=== PATIENT | female | born 1990 | race Caucasian/White ===

== ENCOUNTER 2018-09-26 07:40 | Inpatient (IN) ==
[2018-09-26] MEDS ORDERED: OXYTOCIN 30 UNITS/500 ML BAG IV PRN ×3 (08:15→19:46)
[2018-09-26] MEDS ORDERED: LACTATED RINGER'S 1,000 ML IV PRN ×3 (08:15→14:25)
[2018-09-26 08:42] LABS: Hematocrit (blood only) 42.5 % (37-47); Mean Corpuscular Volume 83.8 fL (80-100); Mean Platelet Volume 13.1 fL (7.4-10.4); Platelet Count 186 K/uL (130-400); RDW Coefficient of Variation 14.1 % (11.5-14.5); RDW Standard Deviation 42.9 fL (36.4-46.3); Red Blood Count 5.07 M/uL (4.2-5.4); White Blood Count 6.36 K/uL (4.8-10.8)
--- NOTE | 2018-09-26 08:51 | History & Physical Report ---
Date of Service September 26, 2018 Assessment & Plan (1) Elective induction of labor planned: Pt is a 28yo for IOL at 39.6 weeks. GBS - -Pitocin, fluids, tylenol for pain, NPO -anticipate History of Present Illness Chief Complaint: IOL Primary Care Provider: NO PCP Ms. Deal is a 28yo here for IOL at 39.6 weeks. Has MARNI of September 27 confirmed by LMP. complicated by transfer to practice at 26weeks and Hx of oligohydramnios with IOL at 37 weeks with prior baby. Has been getting monthly growth ultrasounds from 28 weeks and regular NSTs and MVPs from 32 weeks. O+, Antibody negative. Rubella immune. Hep B NEG, HIV NEG POSITIVE integrated 1st and 2nd trimester screening for Down's. NEGATIVE/NORMAL cell free DNA. Declined Amniocentesis. NEGATIVE 1 hr glucose x1 GBS - Allergies Allergy/AdvReac Type Severity Reaction Status Date / Time No Known Allergies Allergy Unverified 09/26/18 07:57 Home Medications Home Medications Medication Instructions Recorded Confirmed Type PNV cmb#95-ferrous fumarate-FA 1 tab PO DAILY 09/26/18 09/26/18 History [] Patient History Medical History No known health problems Surgical History No history of previous surgery Family History Father Hypertension Social History Preferred Language: Kittitian Communication Ability: Effective Manager Commodities Required: No Beliefs That Will Affect Care: None marital status: Current Living Situation: Spouse Feels Safe at Home: Yes Safety Concerns: Feels Safe At This Time Smoking Status: Never smoker Do You Dip or Chew Tobacco: No Second Hand Exposure: No Hx Alcohol Use: No Hx Substance Use: No Review of Systems no problem reported no dyspnea no chest pain and no palpitations no nausea and no vomiting no headache(s) Physical Exam Respiratory: normal respiratory effort, lungs clear to auscultation Cardiovascular: Rate/Rhythm: regular rate and regular rhythm Genitourinary: OB Exam Abdomen: + vertex and + estimated weight (6-7 pounds) Manual OB Exam: + cervical dilation 2 cm (possibly 3cm), + cervical effacement 60% and + station -1 Results & Data Vital Signs (Past 12 Hours) Vital Signs Temp Pulse Resp BP 09/26/18 08:12 36.7 C 18 09/26/18 07:52 86 125/80 Laboratory Results Laboratory Results - last 24 hr 09/26/18 08:29 WBC 6.36 RBC 5.07 Hgb 15.0 Hct 42.5 MCV 83.8 MCH 29.6 MCHC 35.3 RDW Std Deviation 42.9 RDW Coeff of Regino 14.1 Plt Count 186 MPV 13.1 H Medications Administered Home Medications PNV cmb#95-ferrous fumarate-FA [] 1 tab PO DAILY 09/26/18 [History Confirmed 09/26/18] Active Medications Acetaminophen (Tylenol) 650 mg PO Q4H PRN PRN Reason: Headache or Pain Stop: 10/26/18 09:20 Last Admin: 09/26/18 09:30 Dose: 650 mg Documented by: Lactated Ringer's (Lr) 1,000 mls @ 999 mls/hr IV .Q1H1M PRN PRN Reason: (Pre-Anesthesia) Stop: 10/26/18 08:14 Oxytocin (Pitocin) 30 units in 500 mls @ 333.333 mls/hr IV .Q1H30M PRN; Protocol PRN Reason: Bleeding Control Stop: 10/26/18 08:14 Lactated Ringer's (Lr) 1,000 mls @ 125 mls/hr IV .Q8H RAHUL Stop: 09/28/18 08:14 Oxytocin (Pitocin) 30 units in 500 mls @ 2 mls/hr IV .Q24H PRN; Protocol PRN Reason: Labor Induction/Augmentation Stop: 09/28/18 08:17 Lactated Ringer's (Lr) 1,000 mls @ 999 mls/hr IV .Q1H1M PRN PRN Reason: Tachysystole Stop: 09/28/18 08:17 Supervising Physician Co-Signing Physician Notes Resident Physician Supervision Note: I interviewed and examined the patient. Discussed with Dr. Ashley Moulton MD and agree with findings and plan as documented in the note. Any exceptions or clarifications are listed here: [None] Documented By: Blank Rich MD, FACOG
[2018-09-26] MEDS: LACTATED RINGER'S 1,000 ML IV SCH ×3 (09:15→18:59)
[2018-09-26] MEDS ORDERED: ACETAMINOPHEN 325 MG TAB PO PRN ×2 (09:21→19:46)
[2018-09-26 09:29] LABS: Mean Corpuscular Hgb Conc 35.3 g/dL (32-36)
[2018-09-26] MEDS ORDERED: BUPIVACAINE 0.25% 30 ML VIAL ONE (13:18)
[2018-09-26] MEDS ORDERED: ePHEDrine sulfate 50 MG/ML AMP ONE (13:18)
[2018-09-26] MEDS ORDERED: fentaNYL citrate 100 MCG/2 ML VIAL ONE (13:19)
[2018-09-26] MEDS ORDERED: fentaNYL 2MCG/ML ROPIV 1.25MG/ML 100 ML BAG EPI ONE (13:19)
[2018-09-26] MEDS ORDERED: DiphenhydrAMINE HCL 50 MG/ML VIAL IV PRN (14:25)
[2018-09-26] MEDS ORDERED: PROMETHAZINE HCL 6.25 MG in SODIUM CHLORIDE 0.9% 50 ML IV PRN (14:25)
[2018-09-26] MEDS ORDERED: ONDANSETRON INJ 2 MG/ML 2 ML VIAL IV PRN (14:25)
[2018-09-26] MEDS ORDERED: NALOXONE HCL 0.4 MG/1 ML VIAL/CARP IV PRN (14:25)
[2018-09-26] MEDS ORDERED: ePHEDrine sulfate 50 MG/ML AMP IV PRN (14:25)
[2018-09-26] MEDS ORDERED: NALBUPHINE HCL INJ 10 MG/ML AMP IV PRN (14:25)
[2018-09-26] MEDS ORDERED: NALOXONE HCL 1 MG in SODIUM CHLORIDE 0.9% 1000ML 1,000 ML IV PRN (14:25)
[2018-09-26] MEDS ORDERED: fentaNYL 2MCG/ML ROPIV 1.25MG/ML 100 ML BAG EPI PRN (14:25)
--- NOTE | 2018-09-26 14:25 | Anesthesiology Consultation ---
Date of Service September 26, 2018 Assessment & Plan (1) Encounter for pre-operative examination: Chart Review Chart Review: Patient NOT seen in Pre Admission Testing and Acceptable Risk for Labor Epidural Consults Requested none ASA ASA2 Proposed Anesthesia Anesthesia Type: Labor Epidural Risk / Benefits Reviewed With: PT / POA / Parent / Guardian, Accepts Plan and Informed Consent Obtained NPO Date Last Intake of Fluids: 09/26/18 Time Last Intake of Fluids: 12:00 Date Last Intake of Solids: 09/25/18 Time Last Intake of Solids: 06:00 History Height/Weight Height: 5 ft Weight: 79.832 kg Allergies Allergy/AdvReac Type Severity Reaction Status Date / Time No Known Allergies Allergy Unverified 09/26/18 07:57 Medications Home Medications Medication Instructions Recorded Confirmed Last Taken PNV cmb#95-ferrous fumarate-FA 1 tab PO DAILY 09/26/18 09/26/18 09/25/18 21:00 [] Active Medications Generic Name Dose Route Start Last Admin Trade Name Freq PRN Reason Stop Dose Admin Acetaminophen 650 mg 09/26/18 09:21 09/26/18 09:30 Tylenol PO 10/26/18 09:20 650 mg Q4H PRN Administration Headache or Pain Lactated Ringer's 1,000 mls @ 125 mls/hr 09/26/18 08:15 09/26/18 13:34 Lr IV 09/28/18 08:14 125 mls/hr .Q8H RAHUL Administration Oxytocin 30 units in 500 mls @ 10 mls/hr 09/26/18 08:18 09/26/18 12:30 Pitocin IV 09/28/18 08:17 0.6 units/hr .Q24H PRN 10 mls/hr Labor Induction/Augmentation Titration Protocol 0.6 UNITS/HR Past Medical History Medical History No known health problems Past Family History Family History Father Hypertension Past Surgical History Surgical History No history of previous surgery Social History Smoking Status: Never smoker Do You Dip or Chew Tobacco: No Hx Alcohol Use: No Hx Substance Use: No Physical Exam Vital Signs Last Vital Signs Temp 36.8 C 09/26/18 10:59 Pulse 77 09/26/18 14:22 Resp 18 09/26/18 12:00 BP 101/53 L 09/26/18 14:21 Pulse Ox 98 09/26/18 14:22 Constitutional gravid abdomen ENMT Mouth: no TMJ abnormality Thyromental Distance: > or= 3.5 Finger Breadths Mallampati Class: II Neck normal visual inspection Respiratory normal respiratory effort Cardiovascular Rate/Rhythm: regular rate and regular rhythm Neurologic moves all extremities Psychiatric Orientation: alert Testing Laboratory Results 09/26/18 08:29
[2018-09-26] MEDS ORDERED: CALCIUM CARBONATE 500 MG CHEWABLE TAB PO PRN ×2 (14:44→14:49)
--- NOTE | 2018-09-26 19:45 | Procedure Note ---
Vaginal Delivery Summary Date of Service September 26, 2018 Patient induced beyond 39 weeks cervix was 2 cm although she was very difficult to examine as a result Pitocin was started she requested epidural and then after being comfortable AROM was performed for clear fluid she then progressed to fully dilated and delivered a baby over occiput anterior position over a second- degree tear. Gentle traction no excessive force live vigorous cord clamped and cut. Cord blood obtained placenta removed with gentle traction second-degree tear repaired with 3-0 Vicryl oxytocin started for hemostasis after delivery of placenta sponge and instrument counts correct estimate blood loss 100 mL
[2018-09-26] MEDS ORDERED: DIPHTHERIA/TETANUS/PERTUSSIS 0.5 ML SYR/VIAL IM ONE (19:46)
[2018-09-26] MEDS ORDERED: SUPERCREAM 0.870% 15 GM JAR EXT PRN (19:46)
[2018-09-26] MEDS ORDERED: BENZOCAINE 20% AER SPR 82.5 GM CAN EXT PRN (19:46)
[2018-09-26] MEDS ORDERED: HYDROCORTISONE ACETATE 25 MG SUPP PR PRN (19:46)
[2018-09-26] MEDS ORDERED: BISACODYL 10 MG SUPP PR PRN (19:46)
--- NOTE | 2018-09-26 22:21 | Anesthesia Procedure Note ---
Date of Service September 26, 2018 Anesthesia Post Epidural Note Vital Signs Vital Signs: Temp Pulse Resp BP Pulse Ox 36.5 C 81 18 124/72 91 09/26/18 19:07 09/26/18 22:13 09/26/18 21:18 09/26/18 22:13 09/26/18 19:55 Pain Intensity Abdomen: Pain Intensity: 0 Notes Mental Status: alert / awake / arousable Patient Amnestic to Procedure: Yes Nausea / Vomiting: adequately controlled Pain: adequately controlled Airway Patency, RR, SpO2: stable & adequate BP & HR: stable & adequate Hydration State: stable & adequate Neuraxial Anesthesia: was administered and sensory block resolved Anesthetic Complications: no major complications apparent Epidural: Removed without complications and With tip intact
[2018-09-27] MEDS ORDERED: OXYTOCIN 20 UNITS in LACTATED RINGER'S 1,000 ML IV SCH (02:15)
[2018-09-27] MEDS: IBUPROFEN 600 MG TAB PO PRN ×5 (04:15→22:40)
[2018-09-27 06:52] LABS: Hematocrit (blood only) 37.8 % (37-47); Hemoglobin 12.8 g/dL (12.0-16.0); Mean Corpuscular Hgb Conc 33.9 g/dL (32-36); Mean Corpuscular Volume 84.9 fL (80-100); Mean Platelet Volume 13.3 fL (7.4-10.4); Platelet Count 157 K/uL (130-400); RDW Coefficient of Variation 14.2 % (11.5-14.5); RDW Standard Deviation 44.2 fL (36.4-46.3); Red Blood Count 4.45 M/uL (4.2-5.4); White Blood Count 9.01 K/uL (4.8-10.8)
--- NOTE | 2018-09-27 07:26 | Obstetrical Progress Note ---
Date of Service <Ashley Moulton MD - Last Filed: 09/27/18 07:43> September 27, 2018 Assessment & Plan <Ashley Moulton MD - Last Filed: 09/27/18 07:43> (1) Vaginal delivery: 28yo with vaginal delivery at 39.6 weeks. PPD #1 -Routine care -Ambulation encouraged -Pain control -will continue to monitor lower abd pain Subjective <Ashley Moulton MD - Last Filed: 09/27/18 07:43> Ambulation: limited ambulation (to bathroom) Voiding: no voiding problems Diet Tolerance:: regular diet Lochia:: Moderate Feeding Type:: breast feeding Current Pain Level(1-10): 10 Eyes: no problem reported Respiratory: no dyspnea Cardiovascular: + edema; no chest pain, no palpitations, no lightheadedness and no calf pain Gastrointestinal: + abdominal pain (lower abd pain); no nausea and no vomiting Genitourinary (female): no dysuria Neurologic: + headache(s) (mild) Physical Exam <Ashley Moulton MD - Last Filed: 09/27/18 07:43> Vital Signs (Past 24 Hours) Last Vital Signs Temp 37.0 C 09/27/18 04:00 Pulse 74 09/27/18 04:00 Resp 16 09/27/18 04:00 BP 114/81 09/27/18 04:00 Pulse Ox 98 09/27/18 04:00 Respiratory normal respiratory effort, lungs clear to auscultation Cardiovascular Rate/Rhythm: regular rate and regular rhythm Extremities: + pedal edema; no calf tenderness Gastrointestinal (Abdomen) Percussion/Palpation: + abdomen tender (to palpation in bilateral lower quadrants) Genitourinary OB Exam Abdomen: + fundal height Fundus: + firm and + relation to umbilicus (at umbilicus) Results & Data <Ashley Moulton MD - Last Filed: 09/27/18 07:43> Laboratory Results Laboratory Results - last 24 hr 09/26/18 09/27/18 08:29 06:21 WBC 6.36 9.01 RBC 5.07 4.45 Hgb 15.0 12.8 Hct 42.5 37.8 MCV 83.8 84.9 MCH 29.6 28.8 MCHC 35.3 33.9 RDW Std Deviation 42.9 44.2 RDW Coeff of Regino 14.1 14.2 Plt Count 186 157 MPV 13.1 H 13.3 H Medications Administered Home Medications PNV cmb#95-ferrous fumarate-FA [] 1 tab PO DAILY 09/26/18 [History Confirmed 09/26/18] Active Medications Acetaminophen (Tylenol) 650 mg PO Q6H PRN PRN Reason: Pain/CABALLERO/Fever Stop: 10/26/18 19:45 Benzocaine (Dermoplast Pain Relieving [place]) 1 appln EXT PRN PRN PRN Reason: Perineal Discomfort Stop: 10/26/18 19:45 Last Admin: 09/27/18 04:14 Dose: 82.5 appln Documented by: Bisacodyl (Dulcolax) 5 mg PO 1999 [facility] Stop: 09/27/18 20:01 Bisacodyl (Dulcolax) 10 mg [place] DAILY PRN PRN Reason: No BM on 2nd post- day Stop: 10/26/18 19:45 Cocaine HCl (Supercream 0.870%) 1 gm EXT BID PRN PRN Reason: Hemorrhoidal Inflammation Stop: 10/10/18 19:45 Docusate Sodium (Colace) 100 mg PO BID [facility] Stop: 10/26/18 20:59 Hydrocortisone (Anusol Hc) 25 mg [place] BID PRN PRN Reason: Hemorrhoidal Inflammation Stop: 10/26/18 19:45 Oxytocin (Pitocin) 30 units in 500 mls @ 333.333 mls/hr IV .Q1H30M PRN; Protocol PRN Reason: BLEEDING CONTROL Stop: 10/26/18 19:45 Last Titration: 09/27/18 01:43 Dose: Infused Documented by: Oxytocin 20 units/ Lactated (Ringer's) 1,002 mls @ 125 mls/hr IV .Q8H1M [facility] Stop: 09/27/18 10:15 Last Admin: 09/27/18 02:35 Dose: 125 mls/hr Documented by: Ibuprofen (Motrin) 600 mg PO Q4H PRN PRN Reason: Pain/CABALLERO/Cramping/Fever Stop: 10/26/18 19:45 Last Admin: 09/27/18 04:15 Dose: 600 mg Documented by: Oxycodone/Acetaminophen (Percocet 5mg/325mg) 1 tab PO Q4H PRN PRN Reason: Pain not relieved by... Stop: 10/10/18 19:45 Prenat Multivit/[place]/Iron/Folic Ac ( Vitamin) 1 tab PO QAM RAHUL Stop: 10/27/18 08:59 <Win Chung MD, FACOG - Last Filed: 09/27/18 07:57> Co-Signing Physician Notes Resident Physician Supervision Note: I interviewed and examined the patient. Discussed with Dr. Go and agree with findings and plan as documented in the note. Any exceptions or clarifications are listed here: [None] Documented By: Win Chung MD, FACOG
[2018-09-27] MEDS ORDERED: PRENATAL VITAMIN 1 TAB PO SCH (09:00)
[2018-09-27] MEDS: DOCUSATE SODIUM 100 MG CAP PO SCH ×2 (09:28→20:16)
[2018-09-27] MEDS: OXYCODONE/ACETAMINOPHEN 5mg/325mg TAB PO PRN ×3 (09:28→18:39)
[2018-09-27] MEDS ORDERED: BISACODYL 5 MG TABEC PO SCH (20:00)
[2018-09-28] MEDS: IBUPROFEN 600 MG TAB PO PRN ×2 (02:57→08:54)
[2018-09-28 07:20] LABS: Hematocrit (blood only) 36.3 % (37-47); Hemoglobin 12.2 g/dL (12.0-16.0)
[2018-09-28] MEDS: DOCUSATE SODIUM 100 MG CAP PO SCH (08:54)
--- NOTE | 2018-09-28 10:23 | Obstetrical Progress Note ---
Date of Service September 28, 2018 Assessment & Plan (1) care following vaginal delivery: satisfactory progress discharge to home with written instructions follow up in 6 weeks. Present on Admission?: No Day #:: 2 Subjective Ambulation: ambulating normally Voiding: no voiding problems Passing Gas:: Yes Diet Tolerance:: regular diet Lochia:: Moderate Feeding Type:: breast feeding Review of Systems All systems reviewed & are unremarkable except as noted in HPI & below Physical Exam Vital Signs (Past 24 Hours) Last Vital Signs Temp 98.4 F 09/28/18 00:00 Pulse 73 09/28/18 00:00 Resp 18 09/28/18 00:00 BP 115/82 09/28/18 00:00 Pulse Ox 98 09/27/18 04:00 Constitutional WD/WN, vitals as above Gastrointestinal (Abdomen) normal bowel sounds, soft, nontender, no hepatosplenomegaly Musculoskeletal no calf tenderness Genitourinary OB Exam Abdomen: + fundal height Fundus: + firm and + relation to umbilicus (2 below U)
--- OUTSIDE RECORDS SUMMARY | 2018-09-29 21:51 | External Medical Summary | Continuity of Care Document ---
:1990 Author Name Angel Luis Hunt, Provider Address Unavailable Unavailable , Care Team Providers Name Role Phone Layla Hunt, Blank Lara Unavailable [email or web address] [email or web address], UNKNOWN Unavailable Unavailable Unavailable Unavailable Unavailable Problems Migraine headache (346.90) (G43.909) Rectal pain (569.42) (K62.89) History of oligohydramnios (V13.29) (Z87.59) Encounter for supervision of normal preg mirna in multigravida in third trimester (V22.1) (Z34.83) Pruritus of in third trimester (646.83) (O99.713) Allergies and Adverse Reactions No Known Drug Allergies (Allergy) Medications Tylenol TABS Refills: 0 TABS Refills: 0 Tums 500 MG Oral Tablet Chewable Start: 22-Jul-2018 Refills: 0 Procedures Procedures not documented Immunizations Fluzone Quadrivalent 0.5 ML Intramuscular Suspension P refilled Syringe On: 24-Jun-2018 10:45 Lot #: [id number], [employer] Tdap (Adacel) On: 22-Jul-2018 11:43 Lot #: [id number], [employer] Family History Mother Family history of malignant neoplasm of breast (V16.3) (Z80. 3) Status: Active Family history of osteoporosis (V17.81) (Z82.62) Status: Act sergio Father Family history of thyroid disease (V18.19) (Z83.49) Status: Active Family history of hypertension (V17.49) (Z82.49) Status: Act sergio Family history of Anxiety (300.00) (F41.9) Status: Active Family history of asthma (V17.5) (Z82.5) Status: Active Plan of Treatment Planned Observations Planned Goals not documented Results Non-stress test (Pending) Laboratory: In House 02-Sep-2018 10:44 Non-Stress Test Reactive Group B Strep/OLIVARES 02-Sep-2018 0:00 GRP B BETA STREP CULTURE - OLIVARES ORDERED P ROCEDURE : GRP B Beta Strep Culture -OLIVARES; Specime nt : Vaginal/Rectal S ource of Specimen: Vaginal/Rectal Group B Strep Culture : No Group B Strep isolated Non-stress test (Pending) Laboratory: In [place] 08-Sep-2018 11:08 Non-Stress Test Non-Reactive Non-stress test (Pending) Laboratory: In [place] 12-Sep-2018 16:37 Non-Stress Test Reactive Non-stress test (Pending) Laboratory: In [place] 15-Sep-2018 10:21 Non-Stress Test Reactive Non-stress test (Pending) Laboratory: In [place] 22-Sep-2018 12:52 Non-Stress Test Reactive Non-stress test (Pending) Laboratory: In [place] 25-Sep-2018 10:33 Non-Stress Test Reactive Vital Signs 25-Sep-2018 10:03 Systolic 104 mm[Hg] Diastolic 66 mm[Hg] Weight 177.6 lb Height 58 in BSA Calculated 1.73 m2 BMI Calculated 37.12 kg/m2 22-Sep-2018 11:32 Systolic 104 mm[Hg] Diastolic 68 mm[Hg] Weight 175.8 lb Height 58 in BSA Calculated 1.72 m2 BMI Calculated 36.74 kg/m2 15-Sep-2018 9:43 Systolic 102 mm[Hg] Diastolic 68 mm[Hg] Weight 175.8 lb Height 58 in BSA Calculated 1.72 m2 BMI Calculated 36.74 kg/m2 12-Sep-2018 16:24 Systolic 110 mm[Hg] Diastolic 80 mm[Hg] Weight 176.375 lb Height 58 in BSA Calculated 1.73 m2 BMI Calculated 36.86 kg/m2 08-Sep-2018 10:47 Systolic 100 mm[Hg] Diastolic 80 mm[Hg] Weight 178 lb Height 58 in BSA Calculated 1.73 m2 BMI Calculated 37.2 kg/m2 02-Sep-2018 9:58 Systolic 120 mm[Hg] Diastolic 82 mm[Hg] Weight 176.375 lb Height 58 in BSA Calculated 1.73 m2 BMI Calculated 36.86 kg/m2 Encounters Appointment; Win Chung M.D. 25-Sep-2018 10:40 Encounter Diagnosis: Problem not documented Appointment; OB SC1, Nonstress Test 25-Sep-2018 10:00 Encounter Diagnosis: Problem not documented Appointment; Colten Garrett M.D. 22-Sep-2018 11:50 Encounter Diagnosis: Problem not documented Appointment; OB SC1, Nonstress Test 22-Sep-2018 11:15 Encounter Diagnosis: Problem not documented Appointment; OBGYN SC1, Ultrasound 22-Sep-2018 11:00 Encounter Diagnosis: Problem not documented Appointment; Chester Wu M.D. 15-Sep-2018 10:40 Encounter Diagnosis: Problem not documented Appointment; OBGYN SC1, Ultrasound 15-Sep-2018 10:00 Encounter Diagnosis: Problem not documented Appointment; OB SC1, Nonstress Test 15-Sep-2018 9:30 Encounter Diagnosis: Problem not documented Appointment; OB SC1, Nonstress Test 12-Sep-2018 16:00 Encounter Diagnosis: Problem not documented Appointment; OBGYN SC2, Ultrasound 08-Sep-2018 11:00 Encounter Diagnosis: Problem not documented Appointment; Monica Ross M.D. 08-Sep-2018 10:50 Encounter Diagnosis: Problem not documented Appointment; OB SC1, Nonstress Test 08-Sep-2018 10:15 Encounter Diagnosis: Problem not documented Appointment; OBGYN SC1, Ultrasound 08-Sep-2018 10:00 Encounter Diagnosis: Problem not documented Appointment; Blank Rich M.D. 02-Sep-2018 10:20 Encounter Diagnosis: Problem not documented Appointment; OBGYN SC2, Ultrasound 02-Sep-2018 10:00 Encounter Diagnosis: Problem not documented Appointment; OB SC1, Nonstress Test 02-Sep-2018 9:30 Encounter Diagnosis: Problem not documented Appointment; Andra Woodard DO 20-Aug-2018 11:00 Encounter Diagnosis: Problem not documented Appointment; OB SC1, Nonstress Test 20-Aug-2018 10:30 Encounter Diagnosis: Problem not documented Appointment; OBGYN SC2, Ultrasound 20-Aug-2018 10:00 Encounter Diagnosis: Problem not documented Appointment; Monica Ross M.D. 12-Aug-2018 11:30 Encounter Diagnosis: Problem not documented Appointment; OBGYN SC2, Ultrasound 12-Aug-2018 11:15 Encounter Diagnosis: Problem not documented Appointment; OB SC1, Nonstress Test 12-Aug-2018 10:45 Encounter Diagnosis: Problem not documented Appointment; Andra Woodard DO 05-Aug-2018 11:00 Encounter Diagnosis: Problem not documented Appointment; OB SC1, Nonstress Test 05-Aug-2018 10:30 Encounter Diagnosis: Problem not documented Appointment; OBGYN SC2, Ultrasound 05-Aug-2018 10:15 Encounter Diagnosis: Problem not documented Appointment; Monica Ross M.D. 22-Jul-2018 11:10 Encounter Diagnosis: Problem not documented Appointment; OBGYN SC1, Ultrasound 22-Jul-2018 10:30 Encounter Diagnosis: Problem not documented Appointment; Win Chung M.D. 24-Jun-2018 10:40 Encounter Diagnosis: Problem not documented Appointment; OB SC1, Procedure Rm 24-Jun-2018 10:40 Encounter Diagnosis: Problem not documented Appointment; OBGYN SC1, Ultrasound 24-Jun-2018 9:30 Encounter Diagnosis: Problem not documented Appointment; OB SC1, Nursing Station 24-Jun-2018 8:45 Encounter Diagnosis: Problem not documented
== END 2018-09-28 16:15 | disposition home or self-care (01) | DRG 807 ==
LOC: 4S1 07:40 → 4S2 23:43